=== PATIENT | female | born 2000 | race Caucasian/White ===

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

== ENCOUNTER 2022-10-22 17:55 | Outpatient (REF) | payer MEDICAID, SELFPAY ==
--- NOTE | 2022-10-22 15:00 | PAPFT_PTH ---
PATIENT: Mirlande Rodriguez LOC: [facility]#:[id number] AGE/SX: 22/F ROOM: RE10/22/[address]: Debbie Parker : 2000 BED: DIS: 10/22/2022 SPEC #: [id number] RECD: 10/23/22 13:22 STATUS: GALO RELucinda #: [id number] LAUREN: 10/22/22 15:[address]: Debbie Parker DEPT: [facility] Cytology RECD BY: Margarita Renteria Tissues: 1 - CX/ENDOCX FOR PAP SMEARS Procedures: PAP THIN PREP/UVM Screening Comments: [id number]
== END 2022-10-22 17:56 | disposition home or self-care (01) ==
LOC: NCHCN 17:55
PROVIDERS: PCP Nurse Practitioner Family; Visit Provider Nurse Practitioner Family
DX: Z12.4 Encounter for screening for malignant neoplasm of cervix (principal)
CPT/HCPCS: 88142

== ENCOUNTER 2023-10-29 16:13 | Outpatient (REF) | payer MEDICAID, SELFPAY ==
--- OUTSIDE RECORDS SUMMARY | 2023-10-29 16:18 | XMS_ITS | Referral Summary ---
Author Organization [facility] Address [address] [place] [address] Care Team Providers Care Vacuum Filter Operator Name Role Phone Unknown, Provider Primary Care Provider [phone] Allergies No known active allergies Immunizations Name Administration Dates Next Due Covid-19 mRNA Vaccine (PFIZE R COVID-19) PF 0.3 ml IM (12 yrs+) 06/04/2021,10/01/2020,09/10/2020 Historical Hepatitis B Vaccine, Unspecified 05/2001,2001,2001 Historical Meningococcal Vac cine, Unknown Serogroups 03/23/2002,2001 MMR Vaccine SQ 10/08/2006,10/12/2002 Tdap Vaccine =>7YO IM 12/18/2011 Varicella (Chickenpox) vaccine (VARIVAX) SQ 06/18,03/23/2002 Social History Tobacco Use Types Packs/Day Years Used Date Smoking Tobacco: Never Assessed Interpersonal Safety Answer Date Record ed Physically Hurt Never 03/12/2020 Verbally Threaten Not on file 03/12/2020 Sex and Gender Information Value Date Recorded Sex Assigned at Not on file Gender Identity Not on file Sexual Orientation Not on file Plan of Treatment Not on file Care Teams Vacuum Filter Operator Relationship Specialty Start Date End Date Unknown, Provider, PCP - General 11/24/21
--- OUTSIDE RECORDS SUMMARY | 2023-10-29 16:18 | XMS_ITS | Clinical Summary ---
Author Organization [facility] Address [address] [place] [address] Care Team Providers Care Embedded Linux Engineer Name Role Phone Unknown, Provider Primary Care Provider [phone] Allergies No known active allergies Immunizations Name [...] Orientation Not on file Plan of Treatment Health Maintenance Due Date Last Done Comments Hepatitis C Screen 2000 COVID-19 Vaccine (4 - 2022-2 4 season) 2022 06/04/2021, 10/01/2020, 09/10/2020 Hepatitis B Vaccine Completed 2001, 2001, 2001 Care Teams Embedded Linux Engineer Relationship Specialty Start Date End Date Unknown, Provider, PCP - General 11/24/21
--- OUTSIDE RECORDS SUMMARY | 2023-10-29 16:18 | XMS_ITS | Encounter Summary ---
Author Organization [facility] Address [address] [place] [address] Care Team Providers Care Artificial Stone Setter Name Role Phone Unknown, Provider Primary Care Provider Encounter Details Date Type Department Care Team (Latest Contact Info) Description 10/26/2022 Lab Requisition [facility] Pathology & Laboratory Medicine - [address] [address] [address] [place] [address] Encounter for gynecological examination (general) (routine) without abnormal findings Social History Tobacco Use Types Packs/Day Years Used Date Smoking Tobacco: Never Assessed Interpersonal Safety Answer Date Record ed Physically Hurt Never 03/12/2020 Verbally Threaten Not on file 03/12/2020 Sex and Gender Information Value Date Recorded Sex Assigned at Not on file Gender Identity Not on file Sexual Orientation Not on file documented as of this encounter Plan of Treatment Not on file documented as of this encounter Procedures Procedure Name Priority Date/Time Associated Diagnosis Comments PAP TEST Today 10/22/2022 12:00 EDT Encounter for gynecological examination (general) (routine) without abnormal findings documented in this encounter Results * PAP TEST (10/22/2022 12:00 EDT) Specimens A. Cervix and/or Endocervix , ThinPrep Imaging System with Manual Evaluation 11/03/2022 10:15 EDT [facility] Specimen Adequacy Satisfactory for Evaluation - transformation zone component present 11/03/2022 10:15 T [facility] General Categorization Negative for intraepithelial lesion or malignancy 11/03/2022 10:15 EDT [facility] Attestation . 11/03/2022 10:15 EDT [facility] at 1015 Clinical History SEE BELOW 11/04/19 10:15 EDT [facility] Performing Lab [facility] 11/03/2022 10:15 EDT [facility] Scanned Images 11/03/2022 10:15 EDT [facility] Papanicolaou smear specimen (specimen) CERVIX UTERI STRUCTURE / Unknown 10/22/2022 12:00 EDT 10/26/2022 14:49 EDT Debbie Parker PATHOLOGY ORDERABLE S [facility] [address] [place] [address] documented in this encounter Visit Diagnoses Diagnosis Encounter for gynecological examination (general) (routine) without abnormal findings documented in this encounter Care Teams Artificial Stone Setter Relationship Specialty Start Date End Date Unknown, Provider, PCP - General 11/24/21 documented as of this encounter
[2023-10-29 18:47] LABS: Abs Immature Grans 0.01 10^3/uL (0.0-0.06); Absolute Basophil Count 0.03 10^3/uL (0.0-0.2); Absolute Eosinophil Count 0.07 10^3/uL (0.0-0.7); Absolute Lymphocyte Count 1.77 10^3/uL (1.2-3.4); Absolute Monocyte Count 0.36 10^3/uL (0.1-0.8); Basophils % 0.4 %; HCT 37.1 % (36.0-46.0); HGB 11.3 g/dL (11.2-15.7); Immature Grans % 0.1 %; Lymphocytes % 25.9 %; MCH 23.4 pg (27.0-33.0); MCHC 30.5 % (32.0-36.0); MCV 77 fL (80-95); MPV 11.3 fL (8.0-11.0); Monocytes % 5.3 %; Neutrophils % 67.3 %; Platelet Count 190 10^3/uL (130-400); RBC 4.82 10^6/uL (3.93-5.22); RDW 14.8 % (11.7-14.6); WBC 6.84 10^3/uL (4.4-10.8)
[2023-10-31 10:08] LABS: HIV-1/2 Ag & Ab Screen Negative (Negative)
[2023-11-01 11:13] LABS: Hepatitis C Ab w Rflx HCV PCR Negative (Negative)
== END 2023-10-29 16:14 | disposition home or self-care (01) ==
LOC: NCHCN 16:13
PROVIDERS: PCP Nurse Practitioner Family; Visit Provider Nurse Practitioner Family
DX: Z00.00 Encounter for general adult medical examination without abnormal findings (principal); Z13.0 Encounter for screening for diseases of the blood and blood-forming organs and certain disorders involving the immune mechanism; Z11.59 Encounter for screening for other viral diseases
CPT/HCPCS: 86803; 87389; 85025

== ENCOUNTER 2024-04-25 17:03 | Outpatient (REF) | payer MEDICAID, SELFPAY ==
[2024-04-25 20:55] LABS: Ferritin 7 ng/mL (8-252)
[2024-04-27 10:34] LABS: Lyme Ab w Rflx to Lyme Confirm Negative (Negative)
== END 2024-04-25 17:04 | disposition home or self-care (01) ==
LOC: NCHCN 17:03
PROVIDERS: PCP Nurse Practitioner Family; Visit Provider Nurse Practitioner Family
DX: R89.9 Unspecified abnormal finding in specimens from other organs, systems and tissues (principal); L28.2 Other prurigo
CPT/HCPCS: 82728; 86618

== ENCOUNTER 2024-04-26 05:56 | Day surgery (SDC) | payer MEDICAID, SELFPAY ==
--- NOTE | 2024-04-25 18:34 | W.PREOPHP ---
Assessment and Plan Assessment and plan (1) Pilonidal cyst: Status: Acute Assessment and plan: We reviewed the plan for pilonidal cystectomy, what to expect in terms of the operation and the recovery. Mirlande has no other new questions, and we can proceed with cystectomy as described. History of Present Illness History of Present Illness Chief Complaint: pilonidal cyst Narrative: Mirlande is a 24 year old woman who recently recovered from I&D of an infected pilonidal cyst. I reocmmended pilonidal cystectomy as definitive treatment to reduce the likelihood of recurrence. Since her last office visit, she has been feeling great. She has not had any more pain or discharge from the wounds. She has had no systemic signs of infection. There have been no other interval changes to the medication regimen or allergies. PFSH All Active Problems Pilonidal cyst (Acute) Itch of skin (Acute) Medical History Fatigue Non-scarring alopecia Irregular periods Cataract Somatoform disorder Anxiety Primary amenorrhea Globus sensation Headache Abdominal pain Nausea and vomiting Diarrhea Pilonidal cyst with abscess Family History Mother Hypertension Social History Smoking/Tobacco Use Status: Never Smoking risk assessment performed?: Yes Alcohol Intake: never Drug use: Never Substance use type: does not use Housing: apartment Current gender identity: female Do you feel safe at home: Yes Do you feel safe in your relationship?: Yes Meds Allergies and Home Medications Allergies Allergy/AdvReac Type Severity Reaction Status Date / Time No Known Allergies Allergy Verified 04/26/24 06:22 Home Medications ?Medication ?Instructions ?Recorded ?Confirmed ?Type acetaminophen 325 mg capsule 325 mg PO ONCE PRN 06/05/20 04/26/24 History (Tylenol) fluocinolone 0.025 % topical cream 1 applic topical BID 03/17/23 04/26/24 History Exam Const General: cooperative, healthy appearing and not in acute distress Neck Neck: normal visual inspection, no lymphadenopathy and supple Resp Effort & Inspection: normal respiratory effort Auscultation: clear to auscultation bilaterally Cardio Jugular venous pressure: no JVD Rate: regular rate Rhythm: regular rhythm Heart Sounds: S1 normal and S2 normal Neuro General: patient alert, patient awake and patient oriented x3 Psych Appearance: grossly normal
--- NOTE | 2024-04-25 18:36 | W.PM.DSUDISC ---
Date of service: 04/26/24 Discharge Plan Disposition Patient Disposition: Home Condition: Good Discharge Details Reason For Visit: Pilonidal cystectomy Attending Provider: Aniceto Rodriges Primary Care Provider: Debbie Parker Home Meds and New Rx's Prescriptions: New tramadol 50 mg tablet 50 mg PO Q8H PRNQty: 12 0RF Rx Instructions: Take 1 tablet by mouth up to every 8 hours if needed for more severe pain. Continued fluocinolone 0.025 % cream 1 applic topical BID acetaminophen [Tylenol] 325 mg capsule 325 mg PO ONCE PRN Discharge Instructions Additional Instructions: Mirlande, it was great seeing you today, and I hope you make a quick recovery from the procedure. We were able to excise all of the pilonidal cyst, and this should prevent any future complications from the cyst itself. As we talked about, the next couple weeks will be quite important in terms of wound healing. You should be up and moving around a little bit more more each day, but to be careful as you transition from sitting to standing, with bending over, and any other activities that put a significant amount of stress over the incision site. You have some bandaging over top of the skin stitches which can stay in place until tomorrow. Remove the bandages at that point, and wash the incision with warm soapy water. You should clean the incision at least 1 time per day in the shower. If you can do it twice, that is excellent. You are welcome to put some bandages over the incision if you find that the stitches are irritating, or there is any drainage that needs to be absorbed. Menstrual pads make excellent bandages for this part of your body. Expect to have some pain over the area over the next few days. Tylenol and ibuprofen will probably be very useful. And I did provide a prescription for tramadol if you needed for more severe pain. You can also use heating pads or ice packs if they provide any relief for the discomfort. If you need anything at all, please do not hesitate to ask, otherwise, I look forward to seeing you in the office 1. Resume all of your regular medications. 2. Alternate heating pads and ice packs over the incision to help with pain. 3. Alternate over the counter tylenol and ibuprofen every 6 hours for the first 2 days, then use as needed. Use the prescription for tramadol if needed for more severe pain. 4. Leave bandage in place for 24 hours, then remove. 5. Shower with warm soapy water. Pat dry. Use a bandaid if needed to protect your clothing. 6. No soaking or tub baths until I see you in the office. 7. No heavy lifting until I see you in the office. 8. Call the office (or go directly to the emergency room after hours) if you notice any of the following: Develop chills (warm to touch), or if you have a thermometer and your temperature is above 101 Difficulty breathing or difficultly swallowing Persistent vomiting Any bleeding ? exceeding one tablespoon 9. Call your physician if the site where your intravenous was started becomes red, swollen, painful, and warm to touch. Referrals: Aniceto Rodriges MD [ [facility]] - (May 09 at 8 AM) Activity:: Activity as Tolerated Remove Dressings/Wound Care:: 24 hours Shower/Bathe:: 24 hours Diet:: As Tolerated Discharge Orders Discharge Orders: Discharge Order (Routine); Ordered 04/25/24 Ordered By: Aniceto Rodriges DS: Diagnosis Discharge Diagnosis (1) Pilonidal cyst: Status: Acute Asessment and Plan: Outpatient postoperative follow-up
--- NOTE | 2024-04-25 18:38 | W.PM.OP ---
Operative Note Operative Note PRE-OP DIAGNOSIS: Pilonidal cyst Pilonidal cyst PROCEDURE: pilonidal cystectomy with primary closure SURGEON: Aniceto Rodriges SKILLED NURSING CASE MANAGER: Yesi Larry ANESTHESIA TYPE: Local By Surgeon and General LMA/ETT Refer to Anesthesia Record ESTIMATED BLOOD LOSS: 10 PATHOLOGY: none sent COMPLICATIONS: None Patient was transported to: PACU Patient's condition: stable Indications: Mirlande is a 24-year-old woman who recently recovered from an infected pilonidal cyst. She is here for elective cystectomy to prevent recurrent infections Findings: Uncomplicated pilonidal cyst Procedure Description: I met with Valerie in the preoperative area, we reviewed the plan for surgery. Next, we moved back to the operating room, and general endotracheal anesthesia was induced in the usual fashion. She was then rolled into the prone position taking great care to pad and support her appropriately. The buttocks were gently retracted with tape. Surgical site was then prepped and draped. I started with a generous field block using local anesthetic. Next, I made semielliptical incisions on each side of pilonidal cyst. There were multiple superficial pores and great care was taken to ensure that I encompassed all of this. I dissected down on the right and left sides into the subcutaneous fat and then carefully dissected free the underside of the cyst cavities. Once the pilonidal cyst complex was completely excised, the surgical site was irrigated. Electrocautery was used to assist with hemostasis. The excision site was approximately 8 cm long by about 4 cm deep. Deep tissues were closed with interrupted 2-0 Vicryl stitches, and the skin was reapproximated with interrupted 2-0 nylon's in a horizontal mattress fashion. Bandages were applied, the patient was rolled back to the supine position prior to extubation. She was transferred to the recovery unit. Date of Procedure: 04/26/24
[2024-04-26] VITALS (31 sets, daily range): BP systolic 87–141; BP diastolic 42–97; PULSE 77–114; RESP 12–26; TEMP 36.2–37.2; O2SAT 98–100; BMI 29.9
[2024-04-26] MEDS: Lactated Ringers 1,000 ML 80 ML IV (07:01)
--- NOTE | 2024-04-26 07:29 | W.ANESPRE ---
General Info Date of Service Date Performed: 04/26/24 Height: 5 ft 9 in Weight: 91.8 kg Body Mass Index (BMI): 29.9 Surgical Procedure: Operation Date: 04/26/24 07:40 Proposed Procedure Side Surgeon p Pilonidal Cyst Excision and Closure Aniceto Rodriges MD Actual Procedure Side Surgeon p Pilonidal Cyst Excision and Closure Not Applicable Aniceto Rodriges MD Pre-Op Diagnosis Post-Op Diagnosis Pilonidal cyst Meds Allergies and Home Medications Allergies Allergy/AdvReac Type Severity Reaction Status Date / Time No Known Allergies Allergy Verified 04/26/24 06:22 Home Medication ?Medication ?Instructions ?Recorded acetaminophen 325 mg capsule 325 mg PO ONCE PRN 06/05/20 (Tylenol) fluocinolone 0.025 % topical cream 1 applic topical BID 03/17/23 Current Visit Medications: Current Medications Generic Name Dose Route Start Last Admin Trade Name Freq PRN Reason Stop Dose Admin Hydromorphone HCl 0.5 mg 04/25/24 18:40 Hydromorphone 1 Mg/Ml Syr IVP 05/25/24 18:39 Q1H PRN PRN Cefazolin Sodium/Dextrose 2 gm in 50 mls @ 100 mls/hr 04/26/24 06:00 Ancef Duplex IVPB 04/26/24 23:59 PREOP GLENIS Ringer's Solution 1,000 mls @ 80 mls/hr 04/26/24 07:00 04/26/24 07:01 IV 05/26/24 06:59 80 mls/hr INFUSION GLENIS Administration IV Miscellaneous Supplies 1 each 04/26/24 06:00 Iv Access IV 04/26/24 23:59 DIRECTED GLENIS Sodium Chloride 0 ml 04/26/24 06:00 Normal Saline Flush 10 Ml Syr IV 04/26/24 23:59 PRN PRN Sodium Chloride 0 ml 04/26/24 06:00 Normal Saline 10 Ml Vial IJ 04/26/24 23:59 DIRECTED PRN Sterile Water 0 ml 04/26/24 06:00 Water,Injection,Sterile 10 Ml Vial IJ 04/26/24 23:59 DIRECTED PRN Tramadol HCl 50 mg 04/25/24 18:40 Tramadol 50 Mg Tab PO 05/25/24 18:39 Q6H PRN PRN Pain PFSH Active Problems Active Problems: Problem Status Onset Code Pilonidal cyst Acute L05.91 Itch of skin Acute L29.9 Medical History Medical History Fatigue Non-scarring alopecia Irregular periods Cataract Somatoform disorder Anxiety Primary amenorrhea Globus sensation Headache Abdominal pain Nausea and vomiting Diarrhea Pilonidal cyst with abscess Tobacco Smoking/Tobacco Use Status: Never Alcohol Alcohol Intake: never Substance Use Substance use: Never Substance use type: does not use Vital Signs and Lab Results Vital Signs Most Recent Vital Signs in EMR: Most Recent Vital Signs Temp Pulse Resp BP Pulse Ox 37.2 C 109 H 20 141/82 H 100 04/26/24 06:24 04/26/24 06:24 04/26/24 06:24 04/26/24 06:24 04/26/24 06:24 Point of Care Results Point of Care Results: POC- Test(urine) Negative 04/26/24 06:43 Lab Results Blood Type / Crossmatch: No Data to Display Complete Blood Count: No Data to Display Complete Metabolic Panel: No Data to Display Liver Function Panel: No Data to Display Coagulation Panel: No Data to Display Cardiac Panel: No Data to Display Arterial Blood Gas: No Data to Display Venous Blood Gas: No Data to Display Pancreas Panel: No Data to Display Thyroid Panel: No Data to Display Infectious Disease: No Data to Display Blood Cultures: No Data to Display Toxicology Panel: No Data to Display Panel: No Data to Display Anesthesia Assessment and Plan Anesthesia History Personal History: No History of General Anesthesia Family History: No Family History of Anesthesia Complications Exercise Tolerance Exercise Tolerance: Metabolic Equivalents>4 Pertinent Negatives Pertinent Negatives: No Symptoms of GERD, No Major Cardiovascular Symptoms or Complaints, No Major Pulmonary Symptoms or Complaints and No History of CVA/TIA Cardiac & Pulmonary Exam Cardiac Exam: Normal S1/S2 Heart Sounds Pulmonary Exam: Clear Bilateral Breath Sounds Implantable Cardiac Device Does patient have a Pacemaker or an ICD?: No Airway Exam Known Difficult Airway: No Mallampati Class: 2 Mouth Opening: Normal (> 3cm) Thyromental Distance: Greater than 3 cm Neck Range of Motion: Full ROM Neck Circumference: Normal Teeth Condition: Normal Dentition ASA Classification ASA Score: ASA 2 Emergency Case?: No NPO Status NPO Status: NPO Clears >2 hours, Solids >8 hours Status Status: Negative HCG Anesthesia Plan Resuscitation Status: Full Code Anesthesia Technique: General Anesthesia Airway Planned: Endotracheal Tube Monitors Used: Standard Monitors Preoperative Comments:: Discussed alternatives, risks, benefits of plan. Reviewed positioning concerns related to surgical plan. Patient educated and questions answered.
[2024-04-26] MEDS: ceFAZolin 2 GM/50 ML BAG IVPB (07:45)
[2024-04-26] MEDS: Bupivacaine 0.25% Pres-Free W/EPI 30 ML VIAL (07:55)
[2024-04-26] MEDS: Ketorolac 15 MG/ML VIAL IVP (09:04)
[2024-04-26] MEDS: fentaNYL 100 MCG/2 ML VIAL IVP (09:17)
--- NOTE | 2024-04-26 12:41 | W.ANESPOSTOP ---
Postoperative Evaluation Date, Time and Location Date Performed: 04/26/24 Time Performed: 09:00 Patient Location: Day Surgery Unit Vital Signs Most Recent Imported Vital Signs: Most Recent Vital Signs Temp Pulse Resp BP Pulse Ox 36.4 C L 87 12 131/80 100 04/26/24 10:02 04/26/24 10:02 04/26/24 10:02 04/26/24 10:02 04/26/24 10:02 Pain Score Most Recent Pain Score: Most Recent Pain Score Pain Level 0 04/26/24 10:02 Assessment Mental Status: Awake (Alert & Oriented to Patient Baseline) Airway and Respiratory Function: Patent airway with normal (patient baseline) respiratory exam Cardiovascular Function: Hemodynamically Stable Hydration Status: Adequately Hydrated Nausea & Vomiting: No Nausea or Vomiting Pain: Pt. Denies Any Pain Peripheral Nerve Block: Patient did not receive a nerve block
== END 2024-04-26 10:57 | disposition home or self-care (01) ==
LOC: SUR 05:56
PROVIDERS: PCP Nurse Practitioner Family; Visit Provider Surgery
PROC: (CPT 11770; principal; 2024-04-26 07:30)
DX: L05.91 Pilonidal cyst without abscess (principal)
CPT/HCPCS: 11770; 81025; J0131; J0690; J1100; J1885; J2003; J2250; J2405; J3010; J3475

== ENCOUNTER 2024-11-17 19:45 | Outpatient (REF) | payer MEDICAID, SELFPAY ==
[2024-11-17 19:24] LABS: HCT 39.5 % (36.0-46.0); HGB 12.2 g/dL (11.2-15.7); MCH 25.2 pg (27.0-33.0); MCHC 30.9 % (32.0-36.0); MCV 81 fL (80-95); MPV 11.8 fL (8.0-11.0); Platelet Count 161 10^3/uL (130-400); RBC 4.85 10^6/uL (3.93-5.22); RDW 18.7 % (11.7-14.6); RDW-SD 55.6 fL; WBC 5.35 10^3/uL (4.4-10.8)
[2024-11-17 19:38] LABS: Iron 276 ug/dL (50-170); Total Iron Binding Capacity 396 ug/dL (250-450); Transferrin Sat 70 % (15-50)
[2024-11-17 19:51] LABS: Ferritin 24 ng/mL (8-252)
== END 2024-11-17 19:46 | disposition home or self-care (01) ==
LOC: NCHCN 19:45
PROVIDERS: PCP Nurse Practitioner Family; Visit Provider Nurse Practitioner Family
DX: E61.1 Iron deficiency (principal)
CPT/HCPCS: 85027; 82728; 83540; 83550

== ENCOUNTER 2025-03-29 11:00 | Outpatient (REF) | payer MEDICAID, SELFPAY ==
[2025-03-29 16:29] LABS: HCT 39.1 % (36.0-46.0); HGB 12.6 g/dL (11.2-15.7); MCH 28.3 pg (27.0-33.0); MCHC 32.2 % (32.0-36.0); MCV 88 fL (80-95); MPV 11.5 fL (8.0-11.0); Platelet Count 146 10^3/uL (130-400); RBC 4.46 10^6/uL (3.93-5.22); RDW 12.2 % (11.7-14.6); RDW-SD 39.3 fL; WBC 5.03 10^3/uL (4.4-10.8)
[2025-03-29 16:41] LABS: Iron 111 ug/dL (50-170); Total Iron Binding Capacity 361 ug/dL (250-425); Transferrin Sat 31 % (15-50)
[2025-03-29 16:44] LABS: Ferritin 8 ng/mL (7-271)
== END 2025-03-29 11:01 | disposition home or self-care (01) ==
LOC: NCHCN 11:00
PROVIDERS: PCP Nurse Practitioner Family; Visit Provider Nurse Practitioner Family
DX: E61.1 Iron deficiency (principal)
CPT/HCPCS: 85027; 82728; 83540; 83550